=== PATIENT | female | born 1950 | race American Indian/Alaskan Native ===

== ENCOUNTER 2018-02-08 12:01 | Outpatient (CLI) | payer MEDICARE ==
--- NOTE | 2018-02-08 16:37 | XRay Report ---
FINAL REPORT EXAM: XR CHEST ROUTINE 2V HISTORY: COUGH TECHNIQUE: PA and lateral views of the chest Comparison: None FINDINGS: There prominence of the interstitial markings in both lungs with peribronchial thickening, acute versus chronic. There is no definite evidence of infiltrate and no evidence of pneumothorax or pleural fluid collection. The cardiac silhouette is enlarged. The thoracic aorta is unremarkable. The bony structures are notable for dextrocurvature of the thoracic spine and prominent kyphosis of the thoracic spine. IMPRESSION: 1. Prominence of the interstitial markings with peribronchial thickening, acute versus chronic. No definite evidence of focal infiltrate. If further imaging is required, CT chest may be helpful. 2. Enlarged cardiac silhouette.
--- NOTE | 2018-02-11 07:50 | Cat Scan Report ---
CT scan of sinuses: History: Chronic rhinitis. Findings: Frontal maxillary ethmoid and sphenoid sinuses are well pneumatized. The wall appears intact. No definite mucosal thickening, or fluid level is identified. There is small 4 mm polyp noted in the right and the left Ager cells which appears enlarged. Conchae bullosa of superior turbinates. Nasal septum is in the midline. The ostiomeatal complexes are patent. Impression: Findings as detailed above. No acute changes.
== END 2018-02-08 12:02 | disposition home or self-care (01) ==
LOC: CT 12:01
PROVIDERS: ATTEND Otolaryngology
DX: M40.294 Other kyphosis, thoracic region (principal); Z88.1 Allergy status to other antibiotic agents
CPT/HCPCS: 70486; 71046